=== PATIENT | female | born 1950 | race Two or more races ===

== ENCOUNTER 2023-06-23 11:18 | Emergency (ER) | payer MEDICARE ==
[~2023-06-23] VITALS: Ht 149.9 cm; Wt 59.4 kg
[2023-06-23 12:53] VITALS: BP 110/74; TEMP 98.2; O2SAT 98
== END 2023-06-23 12:54 | disposition home or self-care (01) ==
LOC: ER 11:38
DX: S52.512A Displaced fracture of left radial styloid process, initial encounter for closed fracture (principal); E78.5 Hyperlipidemia, unspecified; M19.90 Unspecified osteoarthritis, unspecified site; Z60.2 Problems related to living alone; W01.0XXA Fall on same level from slipping, tripping and stumbling without subsequent striking against object, initial encounter; Y93.89 Activity, other specified; Y92.89 Other specified places as the place of occurrence of the external cause; Y99.8 Other external cause status
CPT/HCPCS: 73110